=== PATIENT | female | born 1975 | race Caucasian/White ===

== ENCOUNTER 2018-04-27 14:53 | Emergency (ER) | payer SELFPAY ==
--- NOTE | 2018-04-27 15:28 | EDPHYS ---
Physician Documentation [facility] Name: Amairani Eduardo Age: 42 yrs Sex: Female : 1975 Arrival Date: 04/27/2018 Time: 14:56 Bed 10 Private MD: ED Physician León Hutson HPI: 04/27 15:47 This 42 yrs old Female presents to ER via Ambulatory with complaints of jr8 Allergic Reaction. 15:47 Onset: The symptoms/episode began/occurred acutely, yesterday. At home the patient or jr8 guardian has treated the symptoms with Benadryl. Severity of symptoms: At their worst the symptoms were moderate in the emergency department the symptoms are unchanged. The patient has experienced a previous episode. The patient has not recently seen a physician. Patient stated that she had a manicure and pedicure yesterday. Advised them not to use acrylic because she is allergic to them. Stated that they were suppose to put jell on her nails. After having them done started to have burning sensation and swelling of the cuticle regions. Stated that they only time she has had this in the past was when acrylic was put on them . Historical: - Allergies: 15:06 No Known Allergies; ph - PMHx: 15:06 Hypertension; Asthma; ph - PSHx: 15:06 R fallopian tube removed; Cholecystectomy; ph - Immunization history:: Adult Immunizations up to date. - Social history:: Smoking status: Patient/guardian denies using tobacco. - Ebola Screening: : Patient negative for fever greater than or equal to 101.5 degrees Fahrenheit, and additional compatible Ebola Virus Disease symptoms Patient denies exposure to infectious person Patient denies travel to an Ebola-affected area in the 21 days before illness onset. ROS: 15:47 Eyes: Negative for injury, pain, redness, and discharge, ENT: Negative for injury, jr8 pain, and discharge, Neck: Negative for injury, pain, and swelling, Cardiovascular: Negative for chest pain, palpitations, and edema, Respiratory: Negative for shortness of breath, cough, wheezing, and pleuritic chest pain, Abdomen/GI: Negative for abdominal pain, nausea, vomiting, diarrhea, and constipation, Back: Negative for injury and pain, Skin: Negative for injury, rash, and discoloration, Neuro: Negative for headache, weakness, numbness, tingling, and seizure. 15:47 MS/extremity: Positive for erythema, pain, swelling, of the cuticles of finger tips and toes . Exam: 15:47 Head/Face: Normocephalic, atraumatic. Eyes: Pupils equal round and reactive to light, jr8 extra-ocular motions intact. Lids and lashes normal. Conjunctiva and sclera are non-icteric and not injected. Cornea within normal limits. Periorbital areas with no swelling, redness, or edema. ENT: Nares patent. No nasal discharge, no septal abnormalities noted. Tympanic membranes are normal and external auditory canals are clear. Oropharynx with no redness, swelling, or masses, exudates, or evidence of obstruction, uvula midline. Mucous membranes moist. Neck: Trachea midline, no thyromegaly or masses palpated, and no cervical lymphadenopathy. Supple, full range of motion without nuchal rigidity, or vertebral point tenderness. No Meningismus. Cardiovascular: Regular rate and rhythm with a normal S1 and S2. No gallops, murmurs, or rubs. Normal PMI, no JVD. No pulse deficits. Respiratory: Lungs have equal breath sounds bilaterally, clear to auscultation and percussion. No rales, rhonchi or wheezes noted. No increased work of breathing, no retractions or nasal flaring. Abdomen/GI: Soft, non-tender, with normal bowel sounds. No distension or tympany. No guarding or rebound. No evidence of tenderness throughout. Back: No spinal tenderness. No costovertebral tenderness. Full range of motion. Skin: Warm, dry with normal turgor. Normal color with no rashes, no lesions, and no evidence of cellulitis. Neuro: Awake and alert, GCS 15, oriented to person, place, time, and situation. Cranial nerves II-XII grossly intact. Motor strength 5/5 in all extremities. Sensory grossly intact. Cerebellar exam normal. Normal gait. 15:47 Musculoskeletal/extremity: ROM: intact in all extremities, Circulation is intact in all extremities. Sensation intact. Patient had erythema and swelling to the cuticle regions of almost all her fingers and toes. No exudate noted . Vital Signs: 15:05 BP 122 / 93; Pulse 108; Resp 18; Temp 97.8; Pulse Ox 97% on R/A; ph MDM: 15:08 Patient medically screened. jr8 15:27 Data reviewed: vital signs, nurses notes, and as a result, I will discharge patient. jr8 Data interpreted: Pulse oximetry: on room air is 97 %. Interpretation: normal. Counseling: I had a detailed discussion with the patient and/or guardian regarding: the historical points, exam findings, and any diagnostic results supporting the discharge/admit diagnosis, the need for outpatient follow up, a family practitioner, to return to the emergency department if symptoms worsen or persist or if there are any questions or concerns that arise at home. Administered Medications: 15:50 Drug: SOLU-Medrol 125 mg Route: IM; Site: right deltoid; rv 15:50 Follow up: Response: Medication administered at discharge. rv Disposition: 04/28 07:23 Co-signature as Attending Physician, León Hutson MD I agree with the assessment and noel plan of care. Disposition: 04/27/18 15:28 Discharged to Home. Impression: Allergic Reaction . - Condition is Stable. - Discharge Instructions: Anaphylactic Reaction, Adult. - Prescriptions for Hydroxyzine HCl 25 mg Oral Tablet - take 1 tablet by ORAL route every 6 hours As needed; 30 tablet. Keflex 500 mg Oral Capsule - take 1 capsule by ORAL route every 6 hours for 10 days; 40 capsule. Prednisone 20 mg Oral Tablet - take 2 tablet by ORAL route once daily for 5 days; 10 tablet. - Medication Reconciliation Form, Thank You Letter, Antibiotic Education, Prescription Opioid Use form. - Follow up: Private Physician; When: 2 - 3 days; Reason: Recheck today's complaints, Continuance of care, Re-evaluation by your physician. - Problem is new. - Symptoms have improved. Signatures: León Hutson MD MD cha Roszak, Josh, PA PA jr8 Vianey Hirsch, RN RN Ryder Alvarado, RN RN rv Corrections: (The following items were deleted from the chart) 04/27 15:51 15:28 04/27/2018 15:28 Discharged to Home. Impression: Allergic Reaction . Condition is rv Stable. Forms are Medication Reconciliation Form, Thank You Letter, Antibiotic Education, Prescription Opioid Use. Follow up: Private Physician; When: 2 - 3 days; Reason: Recheck today's complaints, Continuance of care, Re-evaluation by your physician. Problem is new. Symptoms have improved. jr8
--- NOTE | 2018-04-27 15:28 | ER ---
Nurse's Notes [facility] Name: Amairani Eduardo Age: 42 yrs Sex: Female : 1975 Arrival Date: 04/27/2018 Time: 14:56 Bed 10 Private MD: Diagnosis: Allergic Reaction Presentation: 04/27 15:01 Presenting complaint: Patient states: I got my nails done yesterday and they weren't ph supposed to use acrylic because I'm allergic to it but I think they did because now my fingers and toes are swollen and feel like they are on fire." Swelling and redness noted to cuticles of sheridan hands and feet, pt denies SOB. Transition of care: patient was not received from another setting of care. Onset: The symptoms/episode began/occurred acutely. Anaphylaxis evaluation, no signs or symptoms of anaphylaxis were noted. Onset of symptoms was April 27, 2018. Risk Assessment: Do you want to hurt yourself or someone else? Patient reports no desire to harm self or others. Risk Assessment: Do you want to hurt yourself or someone else?. Initial Sepsis Screen: Does the patient meet any 2 criteria? No. Patient's initial sepsis screen is negative. Does the patient have a suspected source of infection? No. Patient's initial sepsis screen is negative. Care prior to arrival: None. 15:01 Method Of Arrival: Ambulatory 15:01 Acuity: GARY 4 ph Historical: - Allergies: 15:06 No Known Allergies; ph - PMHx: 15:06 Hypertension; Asthma; ph - PSHx: 15:06 R fallopian tube removed; Cholecystectomy; ph - Immunization history:: Adult Immunizations up to date. - Social history:: Smoking status: Patient/guardian denies using tobacco. - Ebola Screening: : Patient negative for fever greater than or equal to 101.5 degrees Fahrenheit, and additional compatible Ebola Virus Disease symptoms Patient denies exposure to infectious person Patient denies travel to an Ebola-affected area in the 21 days before illness onset. Screenin:21 Abuse screen: Denies threats or abuse. Denies injuries from another. Nutritional rv screening: No deficits noted. Tuberculosis screening: No symptoms or risk factors identified. Fall Risk None identified. Assessment: 15:20 General: Appears in no apparent distress. comfortable, Behavior is calm, cooperative. rv Pain: Denies pain. Neuro: Level of Consciousness is awake, alert, obeys commands, Oriented to person, place, time, situation. Cardiovascular: Capillary refill < 3 seconds. Respiratory: Airway is patent Respiratory effort is even, Breath sounds are clear bilaterally. GI: No signs and/or symptoms were reported involving the gastrointestinal system. : No signs and/or symptoms were reported regarding the genitourinary system. EENT: No signs and/or symptoms were reported regarding the EENT system. Derm: Rash noted that is generalized. Vital Signs: 15:05 BP 122 / 93; Pulse 108; Resp 18; Temp 97.8; Pulse Ox 97% on R/A; ph ED Course: 14:56 Patient arrived in ED. rg4 15:05 Triage completed. ph 15:06 Arm band placed on. ph 15:08 Del Recio PA is PHCP. jr8 15:08 León Hutson MD is Attending Physician. jr8 15:22 Patient has correct armband on for positive identification. Bed in low position. Call rv light in reach. Pulse ox on. NIBP on. 15:51 No provider procedures requiring assistance completed. Patient did not have IV access rv during this emergency room visit. Administered Medications: 15:50 Drug: SOLU-Medrol 125 mg Route: IM; Site: right deltoid; rv 15:50 Follow up: Response: Medication administered at discharge. rv Outcome: 15:28 Discharge ordered by . jr8 15:51 Discharged to home ambulatory. rv 15:51 Condition: good 15:51 Discharge instructions given to patient, Instructed on discharge instructions, follow up and referral plans. medication usage, Demonstrated understanding of instructions, follow-up care, medications, Prescriptions given X 3. 15:51 Patient left the ED. rv Signatures: Del Recio PA PA jr8 Vianey Hirsch RN RN Puja Hidalgo rg4 Ryder Yang RN RN rv
[2018-04-27] MEDS ORDERED: METHYLPREDNISOLONE 125 MG INJ ONE (15:49)
== END 2018-04-27 15:51 | disposition home or self-care (01) ==
LOC: ER 14:53
DX: R22.9 Localized swelling, mass and lump, unspecified (principal); I10 Essential (primary) hypertension; Z91.048 Other nonmedicinal substance allergy status
CPT/HCPCS: 96372; 99283; J2930